=== PATIENT | female | born 1950 | race African-American/Black ===

== ENCOUNTER 2019-05-22 10:17 | Inpatient (IN) ==
[2019-05-22 11:23] LABS: Apearance,Urine CLEAR (Clear); Bilirubin,Urine Negative (Negative); Blood, Urine Small mg/dL (Negative); Glucose,Urine (UA) Negative (Negative); Hyaline Casts,Urine 7 /LPF (0-3); Ketones,Urine 80 mg/dL (Negative); Mucus,Urine Few /LPF (Occasional); Nitrite,Urine Negative (Negative); Protein,Urine 30 MG/DL; RBC,Urine 8 /HPF (0-4); Squamous Epithelial Cell,Urine Occasional /HPF (0-10); Urine Color Yellow (Yellow); Urine Specific Gravity 1.018 (1.001-1.035); Urine Urobilinogen < 2.0 EU/DL (0.2-1.0); WBC,Urine 24 /HPF (0-6)
[2019-05-22 11:36] LABS: Basophils % 0.3 % (0.0-0.8); Hematocrit 34.8 VOL% (35.7-47.0); Hemoglobin 12.9 GM/DL (12.0-16.0); Immature Granulocytes % 0.7 %; Immature Granulocytes Absolute 0.06 #; Lymphocytes # 0.9 10*3/uL (1.4-4.0); Lymphocytes % 10.6 % (21.3-54.2); Mean Corpuscular HGB Conc 37.1 GM/DL (32-36); Mean Corpuscular Volume 80.2 FL (87-102); Mean Platelet Volume 7.5 FL (9.6-12.0); Monocytes % 5.4 % (1.7-12.7); Platelet Count 335 T/CUMM (130-400); Red Blood Count 4.34 MC/CUMM (3.8-5.5); Red Cell Distribution Width 11.5 % (9.3-17.3); White Blood Count 8.7 T/CUMM (4-12)
[2019-05-22 13:06] LABS: Albumin 3.3 G/DL (3.4-5.0); Bilirubin,Total 0.9 MG/DL (0.2-1.0); Calcium 8.9 MG/DL (8.5-10.1); Osmolality,Calculated 218.7 MOS/KG (273-304); Total Protein 7.2 G/DL (6.4-8.3)
[2019-05-22] MEDS ORDERED: SODIUM CHLORIDE 0.9% 500 ML IV STA (13:19)
[2019-05-22] MEDS ORDERED: cefTRIAXone 1,000 MG in SODIUM CHLORIDE 0.9% 100 ML IV STA (13:21)
[2019-05-22] MEDS ORDERED: ACETAMINOPHEN 325 MG TABLET PO PRN (14:01)
[2019-05-22] MEDS ORDERED: ONDANSETRON 4 MG/2 ML VIAL IV PRN (14:01)
[2019-05-22] MEDS ORDERED: diphenhydrAMINE CAP 25 MG CAPSULE PO PRN (14:01)
[2019-05-22] MEDS ORDERED: MORPHINE 4 MG/1 ML VIAL IV PRN (14:31)
[2019-05-22] MEDS: SODIUM CHLORIDE 0.9% 1,000 ML IV SCH ×2 (14:40→22:40)
[2019-05-22] MEDS ORDERED: INFLUENZA VIRUS VACCINE 0.5 ML SYRINGE IM ONE (14:51)
[2019-05-22] MEDS ORDERED: PNEUMOCOCCAL VACCINE (13 VALENT) 0.5 ML SYRINGE IM ONE (14:52)
[2019-05-22] MEDS: PANTOPRAZOLE 40 MG TABLET PO SCH (20:36)
[2019-05-22] MEDS ORDERED: traZODone 50 MG TABLET PO PRN (21:00)
[2019-05-22] MEDS ORDERED: ENOXAPARIN 30 MG/0.3 ML SYRINGE SUBCUT SCH (21:00)
[2019-05-23 04:54] LABS: Basophils % 0.2 % (0.0-0.8); Eosinophils # 0.1 10*3/uL (0.0-0.87); Eosinophils % 0.6 % (0.00-10.9); Hematocrit 33.9 VOL% (35.7-47.0); Hemoglobin 12.5 GM/DL (12.0-16.0); Immature Granulocytes % 0.7 %; Immature Granulocytes Absolute 0.06 #; Lymphocytes # 1.2 10*3/uL (1.4-4.0); Lymphocytes % 13.8 % (21.3-54.2); Mean Corpuscular HGB Conc 36.9 GM/DL (32-36); Mean Corpuscular Volume 80.9 FL (87-102); Mean Platelet Volume 7.9 FL (9.6-12.0); Monocytes % 7.1 % (1.7-12.7); Neutrophils % 77.6 % (38.7-73.9); Platelet Count 364 T/CUMM (130-400); Red Blood Count 4.19 MC/CUMM (3.8-5.5); Red Cell Distribution Width 11.7 % (9.3-17.3); White Blood Count 8.6 T/CUMM (4-12)
[2019-05-23 05:17] LABS: Bilirubin,Total 0.9 MG/DL (0.2-1.0); Calcium 7.8 MG/DL (8.5-10.1); Osmolality,Calculated 222.5 MOS/KG (273-304); Total Protein 6.8 G/DL (6.4-8.3)
[2019-05-23 06:08] LABS: Hepatitis B Surface Ag Quant 0.27 Index; Hepatitis B Surface Ag Result Negative (Negative); Hepatitis C Virus Ab Quant 0.03 Index; Hepatitis C Virus Ab Result Negative (Negative)
[2019-05-23] MEDS: cefTRIAXone 1,000 MG in SYRINGE 1 EACH IV SCH (06:13)
[2019-05-23] MEDS: SODIUM CHLORIDE 0.9% 1,000 ML IV SCH ×2 (06:16→17:27)
[2019-05-23] MEDS ORDERED: PANTOPRAZOLE 40 MG TABLET PO SCH (09:00)
[2019-05-23] MEDS ORDERED: ERGOCALCIFEROL 50,000 UNIT CAPSULE PO SCH (09:00)
[2019-05-23] MEDS: SODIUM CHLORIDE 3% INJ 500 ML IV SCH (09:27)
[2019-05-23] MEDS: POTASSIUM CHLORIDE 10 MEQ TABLET PO SCH (09:29)
[2019-05-23] MEDS: ATORVASTATIN 20 MG TABLET PO SCH (09:29)
[2019-05-23] MEDS: METOPROLOL SUCCINATE XL 25 MG TABLET PO SCH (09:29)
[2019-05-23] MEDS: PANTOPRAZOLE 40 MG TABLET PO SCH ×2 (09:29→21:39)
[2019-05-23] MEDS ORDERED: ENOXAPARIN 40 MG/0.4 ML SYRINGE SUBCUT SCH (21:00)
[2019-05-24] MEDS: cefTRIAXone 1,000 MG in SYRINGE 1 EACH IV SCH (06:18)
[2019-05-24] MEDS: METOPROLOL SUCCINATE XL 25 MG TABLET PO SCH (09:47)
[2019-05-24] MEDS: ATORVASTATIN 20 MG TABLET PO SCH (09:48)
[2019-05-24] MEDS: POTASSIUM CHLORIDE 10 MEQ TABLET PO SCH (09:48)
[2019-05-24] MEDS: PANTOPRAZOLE 40 MG TABLET PO SCH ×2 (09:48→21:45)
[2019-05-24] MEDS: SODIUM CHLORIDE 3% INJ 500 ML IV SCH (20:46)
[2019-05-25] MEDS: SODIUM CHLORIDE 3% INJ 500 ML IV SCH ×2 (02:11→20:52)
[2019-05-25 05:18] LABS: Calcium 8.5 MG/DL (8.5-10.1); Osmolality,Calculated 246.6 MOS/KG (273-304)
[2019-05-25] MEDS: cefTRIAXone 1,000 MG in SYRINGE 1 EACH IV SCH (05:59)
[2019-05-25] MEDS ORDERED: MAGNESIUM SULF RIDER 2 GM in PREMIX 1 EACH IV ONE (07:40)
[2019-05-25] MEDS: METOPROLOL SUCCINATE XL 25 MG TABLET PO SCH (08:38)
[2019-05-25] MEDS: ATORVASTATIN 20 MG TABLET PO SCH (08:38)
[2019-05-25] MEDS: PANTOPRAZOLE 40 MG TABLET PO SCH ×2 (08:38→21:45)
[2019-05-25] MEDS: POTASSIUM CHLORIDE 20 MEQ TABLET PO SCH ×3 (08:38→16:50)
[2019-05-25] MEDS: POTASSIUM CHLORIDE 10 MEQ TABLET PO SCH (08:39)
[2019-05-25] MEDS ORDERED: MINERAL OIL/PETROLATUM OPH OINT 3.5 GM TUBE BOTH EYES PRN (10:07)
[2019-05-25] MEDS ORDERED: ALBUMIN 5% 12.5 GM/250 ML VIAL IV ONE (13:06)
[2019-05-25] MEDS: NIFEdipine 10 MG CAPSULE PO PRN (13:13)
[2019-05-25] MEDS ORDERED: POLYVINYL ALCOHOL 1.4% OPH SOLN 15 ML BOTTLE BOTH EYES PRN (13:15)
[2019-05-26] MEDS: NIFEdipine 10 MG CAPSULE PO PRN (02:25)
[2019-05-26 06:03] LABS: Calcium 8.8 MG/DL (8.5-10.1); Osmolality,Calculated 255.1 MOS/KG (273-304)
[2019-05-26] MEDS: cefTRIAXone 1,000 MG in SYRINGE 1 EACH IV SCH (06:47)
[2019-05-26] MEDS: METOPROLOL SUCCINATE XL 25 MG TABLET PO SCH (08:00)
[2019-05-26] MEDS: POTASSIUM CHLORIDE 10 MEQ TABLET PO SCH (08:00)
[2019-05-26] MEDS: ATORVASTATIN 20 MG TABLET PO SCH (08:00)
[2019-05-26] MEDS: PANTOPRAZOLE 40 MG TABLET PO SCH (08:00)
[2019-05-27 05:35] LABS: Basophils # 0.1 10*3/uL (0.0-0.2); Basophils % 0.7 % (0.0-0.8); Eosinophils # 0.2 10*3/uL (0.0-0.87); Eosinophils % 2.8 % (0.00-10.9); Hemoglobin 10.4 GM/DL (12.0-16.0); Immature Granulocytes % 0.7 %; Immature Granulocytes Absolute 0.06 #; Lymphocytes # 1.3 10*3/uL (1.4-4.0); Lymphocytes % 14.8 % (21.3-54.2); Mean Corpuscular HGB Conc 34.7 GM/DL (32-36); Mean Platelet Volume 8.6 FL (9.6-12.0); Monocytes % 6.9 % (1.7-12.7); Neutrophils % 74.1 % (38.7-73.9); Platelet Count 297 T/CUMM (130-400); Red Blood Count 3.53 MC/CUMM (3.8-5.5); Red Cell Distribution Width 13.2 % (9.3-17.3); White Blood Count 8.5 T/CUMM (4-12)
[2019-05-27 05:53] LABS: Calcium 9.2 MG/DL (8.5-10.1); Osmolality,Calculated 260.5 MOS/KG (273-304)
[2019-05-27] MEDS: cefTRIAXone 1,000 MG in SYRINGE 1 EACH IV SCH (06:12)
[2019-05-27] MEDS: METOPROLOL SUCCINATE XL 25 MG TABLET PO SCH (09:23)
[2019-05-27] MEDS: ATORVASTATIN 20 MG TABLET PO SCH (09:23)
[2019-05-27] MEDS: POTASSIUM CHLORIDE 10 MEQ TABLET PO SCH (09:23)
[2019-05-27] MEDS: LISINOPRIL 10 MG TABLET PO SCH (09:23)
[2019-05-27] MEDS: amLODIPine 10 MG TABLET PO SCH (09:23)
[2019-05-27] MEDS: PANTOPRAZOLE 40 MG TABLET PO SCH (09:23)
[2019-05-28] MEDS: cefTRIAXone 1,000 MG in SYRINGE 1 EACH IV SCH (06:06)
[2019-05-28 06:19] LABS: Calcium 9.1 MG/DL (8.5-10.1); Osmolality,Calculated 255.9 MOS/KG (273-304)
[2019-05-28] MEDS ORDERED: ERGOCALCIFEROL 50,000 UNIT CAPSULE PO SCH (09:00)
[2019-05-28] MEDS: POTASSIUM CHLORIDE 10 MEQ TABLET PO SCH (09:20)
[2019-05-28] MEDS: METOPROLOL SUCCINATE XL 25 MG TABLET PO SCH (09:21)
[2019-05-28] MEDS: ATORVASTATIN 20 MG TABLET PO SCH (09:22)
[2019-05-28] MEDS: amLODIPine 10 MG TABLET PO SCH (09:22)
[2019-05-28] MEDS: PANTOPRAZOLE 40 MG TABLET PO SCH (09:23)
[2019-05-28] MEDS: LISINOPRIL 10 MG TABLET PO SCH (09:23)
[2019-05-28 12:29] VITALS: BP 128/76
== END 2019-05-28 13:53 | disposition home or self-care (01) | DRG 829 ==
LOC: N.ED 10:17 → N.EDINP 14:13 → SUATTDRO 14:13 → N.ICU 14:19 → N.4E 05-27 13:29
PROVIDERS: ADMIT Family Medicine; ATTEND Hospitalist